=== PATIENT | female | born 1965 | race Caucasian/White ===

== ENCOUNTER 2018-09-24 08:02 | Inpatient (IN) | payer OTHER ==
[2018-09-22 13:45] LABS: BASOPHILS % (AUTO) 0.5 % (0-1); EOSINOPHILS # (AUTO) 0.1 X10'3 (0-0.9); EOSINOPHILS % (AUTO) 1.3 % (0-6); LYMPHOCYTES # (AUTO) 1.3 X10'3 (1.1-4.8); LYMPHOCYTES % (AUTO) 23.5 % (21-51); MEAN CORPUSCULAR HEMOGLOBIN 28.2 PG (27.0-31.0); MEAN CORPUSCULAR HGB CONC 32.9 g/dL (33.0-36.5); MEAN CORPUSCULAR VOLUME 85.7 FL (78-98); MONOCYTES # (AUTO) 0.4 X10'3 (0-0.9); MONOCYTES % (AUTO) 6.6 % (2-12); NEUTROPHILS # (AUTO) 3.8 X10'3 (1.8-7.7); NEUTROPHILS % (AUTO) 68.1 % (42-75); PRE OP HEMATOCRIT 38.1 % (35.0-45.0); PRE OP HEMOGLOBIN 12.5 g/dL (12.0-16.0); PRE OP PLATELET COUNT 258 X10'3 (140-440); RED BLOOD COUNT 4.44 X10'6 (4.20-5.60); RED CELL DISTRIBUTION WIDTH 15.6 % (11.5-14.5)
[2018-09-22 14:17] LABS: ALBUMIN 3.4 G/DL (3.4-5.0); ALKALINE PHOSPHATASE 67 IU/L (46-116); BLOOD UREA NITROGEN 9 MG/DL (7-18); BUN/CREATININE RATIO 13.6 (6.6-38.0); CALCIUM 9.1 MG/DL (8.5-10.1); CHLORIDE 107 MMOL/L (99-107); CREATININE 0.66 MG/DL (0.40-0.90); PRE OP ALT 62 U/L (30-65); PRE OP ANION GAP 10 (8-16); PRE OP AST 20 U/L (10-37); PRE OP BILIRUB, TOTAL 0.3 MG/DL (0.0-1.0); PRE OP GLUCOSE 136 MG/DL (70-104); PRE OP POTASSIUM 3.7 MMOL/L (3.4-5.1); PRE OP SODIUM 141 MMOL/L (135-145); TOTAL CARBON DIOXIDE 24.5 MMOL/L (24-32); TOTAL PROTEIN 6.8 G/DL (6.4-8.2); eGFR > 90 ML/MIN
[2018-09-24] VITALS (16 sets, daily range): BP systolic 91–127; BP diastolic 46–72
[~2018-09-24] VITALS: Ht 162.6 cm; Wt 68.9 kg
[~2018-09-24 08:02] MED LIST: ESTR1VAG VG; IRON PO; LEVO75TA PO; MULTIVITAMIN PO; PROG200C11 PO; ceFOXitin sod/dextrose 2g/50ml 50 ML IV ONE; famotidine 20mg tablet PO ONE; ringers solution, lacted 1,000 ML IV SCH
[2018-09-24] MEDS ORDERED: LIDOcaine 1% 30ml preserv. free vial ONE (08:43)
[2018-09-24] MEDS ORDERED: epiNEPHrine 1 mg/ml inj ONE (08:43)
[2018-09-24] MEDS ORDERED: vasoPRESSIN 20 units/ml inj. ONE (08:44)
[2018-09-24] MEDS ORDERED: fluoroscein sod 10% (100mg/ml) 5ml vial ONE (10:15)
[2018-09-24] MEDS ORDERED: sevoflurane 250ml liquid IH ONE (10:15)
[2018-09-24] MEDS ORDERED: ringers solution, lacted 1,000 ML IV SCH (10:19)
[2018-09-24] MEDS ORDERED: morphine 4 MG/ML inj SYRINge IV PRN ×2 (10:20)
[2018-09-24] MEDS ORDERED: proCHLORperazine 10 MG/2 ml inj IV PRN (10:20)
[2018-09-24] MEDS ORDERED: ondansetron/PF 4mg/2ml inj IV PRN ×2 (10:20→13:40)
[2018-09-24] MEDS ORDERED: meperidine/PF 25mg/ml syringe IV PRN ×3 (10:20)
[2018-09-24] MEDS ORDERED: BUPIVAcaine/PF 2.5mg/ml (0.25%) 10ml vial ONE (10:21)
[2018-09-24] MEDS ORDERED: BUPIVACAINE liposomal/PF 13.3 MG/ML vial IM ONE (10:21)
[2018-09-24] MEDS ORDERED: midazolam 2 mg/2 ml injection ONE (10:26)
[2018-09-24] MEDS ORDERED: fentaNYL /PF 50mcg/ml 5ml ampule ONE (10:35)
[2018-09-24] MEDS ORDERED: glycopyrrolate 0.2mg/ml inj ONE (12:23)
[2018-09-24] MEDS ORDERED: LIDOcaine 2% (20mg/ml) 5ml vial ONE (12:23)
[2018-09-24] MEDS ORDERED: dexamethasone sod phosphate 4mg/ml inj. ONE (12:23)
[2018-09-24] MEDS ORDERED: rocuronium 10mg/ml inj IV ONE (12:23)
[2018-09-24] MEDS ORDERED: ondansetron/PF 4mg/2ml inj ONE (12:23)
[2018-09-24] MEDS ORDERED: propofol inj 20 ML IV ONE (12:23)
[2018-09-24] MEDS ORDERED: neostigmine methylsulfate 1 MG/ML 10ml vial ONE (12:23)
[2018-09-24] MEDS ORDERED: clindamycin phosphate 40gm vag cream ONE (13:14)
--- NOTE | 2018-09-24 13:37 | NUR ---
Received from OR via surgical bed, accompanied by Anesthesiologist JUAN CARLOS and report given by Anesthesiolgist. Pt with island dressing to abdomen with minimal drainage to dressing, SCDs placed, VS stable, Mask to 10L O2. Belongings at bedside. 20G to left forearm IVF LR running at 100cc/hr. Addendum: 09/24/18 at 1342 by Cindy Chavez RN Also, bowden cath draining bright yellow urine, and livan pad with minimal drainage
[2018-09-24] MEDS ORDERED: mag hydrox/Alum hydrox/simeth 30ml oral suspension PO PRN (13:40)
[2018-09-24] MEDS ORDERED: CADD PCA waste documentation MC PRN (13:40)
[2018-09-24] MEDS ORDERED: normal saline 500ml IV soln 500 ML IV PRN (13:40)
[2018-09-24] MEDS ORDERED: LORazepam 2 mg/ml vial IV PRN (13:40)
[2018-09-24] MEDS ORDERED: ketorolac trometh. 30mg/ml inj. IV PRN (13:40)
[2018-09-24] MEDS ORDERED: temazepam 15mg capsule PO PRN (13:40)
[2018-09-24] MEDS ORDERED: diphenhydrAMINE 50 mg/ml inj IV PRN (13:40)
[2018-09-24] MEDS ORDERED: oxyCODONE/APAP 5-325mg tablet PO PRN (13:40)
[2018-09-24] MEDS ORDERED: naloxone 0.4 mg/ml inj IV PRN (13:40)
[2018-09-24] MEDS ORDERED: metoclopramide 5 mg/ml inj IV PRN (13:40)
[2018-09-24] MEDS ORDERED: LEVO137T2 PO (13:51)
[2018-09-24] MEDS: HYDROmorphone/NS 1 mg/ml CADD 50 ML IV SCH ×5 (14:27→23:00)
--- NOTE | 2018-09-24 14:30 | NUR ---
Received report from recovery room nurse Iris CONNER. Awaiting arrival to room 351.
--- NOTE | 2018-09-24 14:42 | NUR ---
Report called to receiving nurse. Transferred via surigcal bed. Belongings on bed with patient, mother at bedside. Special Issues communicated to receiving nurse Concha CONNER in report. Pt settled into room, BLL, call light in hand and dilaudid CADD button in hand with education provided. SCDs on bed, incision remains with island dressing and minimal drainage. Pt alert and oriented stable for transfer. LR running at 100/hr.
[2018-09-24] MEDS: ringers solution, lacted 1,000 ML IV SCH ×2 (14:50→16:15)
[2018-09-24] MEDS ORDERED: HYDROmorphone/NS 1 mg/ml CADD 50 ML IV SCH (15:00)
[2018-09-24] MEDS: simethicone 80mg chew tab PO SCH (17:20)
[2018-09-24] MEDS: ferrous sulfate 325mg tablet PO SCH (17:21)
--- NOTE | 2018-09-24 18:27 | NUR ---
Problems reprioritized. Patient report given, questions answered & plan of care reviewed with Fernanda CONNER.
[2018-09-24] MEDS: docusate sod 100mg capsule PO SCH (19:23)
[2018-09-24] MEDS ORDERED: progesterone, micronized 100mg capsule PO SCH (21:00)
[2018-09-25] VITALS: BP 120/39
[2018-09-25] MEDS: ringers solution, lacted 1,000 ML IV SCH (00:21)
[2018-09-25] MEDS: HYDROmorphone/NS 1 mg/ml CADD 50 ML IV SCH ×4 (01:00→07:00)
--- NOTE | 2018-09-25 05:00 | NUR ---
Enriquez catheter and vaginal packing discontinued at this time. Pt tolerated well. Pt up walking and will attempt to urinate. Addendum: 09/25/18 at 0513 by Fernanda Smith RN Amended: Links added.
[2018-09-25 06:26] LABS: BASOPHILS % (AUTO) 0 % (0-1); EOSINOPHILS % (AUTO) 0.2 % (0-6); HEMATOCRIT 29.8 % (35.0-45.0); LYMPHOCYTES # (AUTO) 1.5 X10'3 (1.1-4.8); LYMPHOCYTES % (AUTO) 14.2 % (21-51); MEAN CORPUSCULAR HGB CONC 33.6 g/dL (33.0-36.5); MEAN CORPUSCULAR VOLUME 86.3 FL (78-98); MEAN PLATELET VOLUME 7.7 FL (7.4-10.4); MONOCYTES # (AUTO) 1.1 X10'3 (0-0.9); MONOCYTES % (AUTO) 10.9 % (2-12); NEUTROPHILS # (AUTO) 7.8 X10'3 (1.8-7.7); NEUTROPHILS % (AUTO) 74.7 % (42-75); PLATELET COUNT 217 X10'3 (140-440); RED BLOOD COUNT 3.45 X10'6 (4.20-5.60); RED CELL DISTRIBUTION WIDTH 15.6 % (11.5-14.5); WHITE BLOOD COUNT 10.4 X10'3 (4.5-11.0)
[2018-09-25 06:28] LABS: ALBUMIN 2.9 G/DL (3.4-5.0); ANION GAP 8 (8-16); BLOOD UREA NITROGEN 6 MG/DL (7-18); BUN/CREATININE RATIO 8.6 (6.6-38.0); CALCIUM 7.9 MG/DL (8.5-10.1); CHLORIDE 107 MMOL/L (99-107); GLUCOSE 102 MG/DL (70-104); POTASSIUM 3.4 MMOL/L (3.5-5.1); SODIUM 141 MMOL/L (135-145); TOTAL CARBON DIOXIDE 25.8 MMOL/L (24-32); eGFR 88 ML/MIN
--- NOTE | 2018-09-25 06:30 | NUR ---
Problems reprioritized. Patient report given, questions answered & plan of care reviewed with Fabby CONNER. Addendum: 09/25/18 at 0630 by Fernanda Smith RN Amended: Links added.
--- NOTE | 2018-09-25 06:36 | NUR ---
Patient in room [facility] 351. I have received report from UBALDO Michael and had the opportunity to ask questions and assume patient care.
[2018-09-25] MEDS ORDERED: levoTHYROXINE 125mcg tablet PO SCH (07:00)
[2018-09-25] MEDS: ferrous sulfate 325mg tablet PO SCH (07:17)
[2018-09-25] MEDS: simethicone 80mg chew tab PO SCH ×2 (07:18→13:37)
[2018-09-25] MEDS: docusate sod 100mg capsule PO SCH (07:18)
[2018-09-25] MEDS ORDERED: levoTHYROXINE 25mcg tablet PO SCH (07:30)
[2018-09-25] MEDS ORDERED: levoTHYROXINE 112mcg tablet PO SCH (07:30)
[2018-09-25] MEDS: oxyCODONE/APAP 5-325mg tablet PO PRN ×2 (07:38→11:40)
[2018-09-25 08:00] VITALS: BP 115/42
[2018-09-25] MEDS ORDERED: ESTRADIOL VG SCH (08:00)
[2018-09-25] MEDS ORDERED: multi-vitamin w/minerals & ferrous gluconate 9 MG/15 ML oral LIQUID PO SCH (08:00)
[2018-09-25] MEDS ORDERED: MULTIVIT-MIN/FERROUS GLUCONATE 9 MG/15 ML LIQUID PO SCH (09:20)
[2018-09-25 11:00] VITALS: BP 118/35
--- NOTE | 2018-09-25 15:25 | NUR ---
PT DISCHARGED TO HOME WITH ALL BELONGINGS, IN PRIVATE VEHICLE, ACCOMPANIED BY FAMILY. DISCHARGE INSTRUCTIONS AND MEDICATIONS REVIEWED. IV DC'D, CANNULA INTACT. PT INSTRUCTED TO FOLLOW UP WITH PRE-SCHEDULED APPOINTMENT IN 2 WEEKS, AND TO WATCH FOR SIGNS OF INFECTION. NEW PRESCRIPTIONS PROVIDED TO PT PRIOR TO ADMISSION. PT ESCORTED TO FRONT LOBBY VIA WHEELCHAIR BY PCT.
== END 2018-09-25 14:35 | disposition home or self-care (01) | DRG 743 ==
LOC: PAS IN 08:02 → EDSTATUS 10:00 → SUR 3N 14:52
PROVIDERS: ADMIT Obstetrics & Gynecology; ATTEND Obstetrics & Gynecology
PROC: 0UT70ZZ Resection of Bilateral Fallopian Tubes, Open Approach (ICD-10-PCS; 2018-09-24)
PROC: 0TSD0ZZ Reposition Urethra, Open Approach (ICD-10-PCS; 2018-09-24)
PROC: 0JQC0ZZ Repair Pelvic Region Subcutaneous Tissue and Fascia, Open Approach (ICD-10-PCS; 2018-09-24)
PROC: 0TJB8ZZ Inspection of Bladder, Via Natural or Artificial Opening Endoscopic (ICD-10-PCS; 2018-09-24)
PROC: 3E0T3BZ Introduction of Anesthetic Agent into Peripheral Nerves and Plexi, Percutaneous Approach (ICD-10-PCS; 2018-09-24)
PROC: 0UT90ZZ Resection of Uterus, Open Approach (ICD-10-PCS; principal; 2018-09-24 10:15)
DX: D25.1 Intramural leiomyoma of uterus (principal); N92.0 Excessive and frequent menstruation with regular cycle; N39.3 Stress incontinence (female) (male); N81.11 Cystocele, midline; D64.9 Anemia, unspecified; N83.209 Unspecified ovarian cyst, unspecified side; E03.9 Hypothyroidism, unspecified; D25.2 Subserosal leiomyoma of uterus; N81.6 Rectocele; Z79.899 Other long term (current) drug therapy; Z98.51 Tubal ligation status; Z79.890 Hormone replacement therapy; Z82.49 Family history of ischemic heart disease and other diseases of the circulatory system; Z83.3 Family history of diabetes mellitus; Z82.5 Family history of asthma and other chronic lower respiratory diseases; Z80.49 Family history of malignant neoplasm of other genital organs
CPT/HCPCS: Z7506; Z7508; 36415; 80048; 80053; 82948; 84443; 85025; 86885; 86900; 86901; 93005; A4355; A4618; A6250; A7000; C1758; C1771; C9290; G0378; J0171; J0694; J1100; J1170; J2001; J2175; J2250; J2405; J2704; J2710; J3010; J3490; J7030; J7040; J7120